=== PATIENT | female | born 1975 | race Caucasian/White ===

== ENCOUNTER → 2016-11-16 | Outpatient (CLI) | payer SELFPAY ==
[~2016-11-16] MED LIST: ARIP10TA15 PO; BACL10TA PO; CELE100C PO; HYDR-4078 PO; HYDR25TA85 PO; TRAM50TA53 PO; VILA40TA PO
== END ==
LOC: WC.BC 16:05
DX: Z12.31 Encounter for screening mammogram for malignant neoplasm of breast (principal); Z80.3 Family history of malignant neoplasm of breast